=== PATIENT | female | born 1970 | race Caucasian/White ===

== ENCOUNTER 2016-04-13 05:39 | Observation (INO) | payer OTHER ==
--- NOTE | 2016-04-10 14:15 | GHP ---
[f rep st] PREOP HISTORY AND PHYSICAL DATE OF ADMISSION: 04/13/2016 DATE OF SURGERY: April 13, 2016, at 7:15 a.m. SURGERY TO BE PERFORMED: Total laparoscopic hysterectomy, bilateral salpingectomy. SURGEON: Nicol Gonzalez MD PLASTIC SHEETS FINISHING SUPERVISOR: Vandana Martínez MD PREOPERATIVE DIAGNOSES: Symptomatic uterine fibroids and menometrorrhagia. HISTORY OF PRESENT ILLNESS: The patient is a 46-year-old 0 who first presented for a problem visit due to her menometrorrhagia in January of 2016. She describes chronic heavy periods for greater than 15 years. They have been increasing over the last year, causing severe anemia, needing iron multiple times a day. She says her periods are every 30-35 days for 7 days. For several days, she has to change a super tampon and a pad every hour, and she has large clots. She also has moderate to severe cramping, and her periods are getting in the way of her life. She is not in a current relationship. She has no current contraception and has not for years. She was evaluated with a pelvic ultrasound. The ultrasound revealed multiple uterine fibroids, a large submucosal fibroid which was 2.03 x 1.74 x 2.2 cm and then a large posterior fundal subserosal fibroid that was 7.2 x 6 x 7.7 cm. Ovaries were normal. We discussed the role of both fibroids in her symptoms. After knowledge of her fibroids, she does report pelvic bulk symptoms, causing significant back pain, especially during her periods, and also pressure on her bowel and her bladder, as well as the submucosal fibroid likely contributing to her menometrorrhagia symptoms. We discussed medical management with oral contraceptive pills; however, the patient has hypertension, requiring 2 different meds to control her blood pressure. She is reluctant to start oral contraceptive pills, as am I. We discussed an intrauterine device; however, the submucosal fibroid would likely prevent accurate placement of an IUD and may have little utility because of that submucosal fibroid versus uterine artery embolization versus surgery. The patient desires surgical management with a total laparoscopic hysterectomy. GYNECOLOGICAL HISTORY: As above. She had menses at age 14. She has cycles every 30-35 days, about 5-7 days of flow, with heavy and moderate cramps. No history of any abnormal Paps. Last Pap smear was performed by de in January of 2016. It was normal. No history of any STDs. Not on any current contraception. She is 0. She has never been before. PAST MEDICAL HISTORY: Hypertension for approximately 2 years. She takes both lisinopril and hydrochlorothiazide for this. Also anemia, likely caused by her menometrorrhagia, requiring iron. PAST SURGICAL HISTORY: Only significant for wisdom teeth extraction at age 39. SOCIAL HISTORY: She is single. She works as a travel physical therapist. She denies tobacco use. Social alcohol. No drug use. FAMILY HISTORY: Father has hypertension and heart disease. He has had a cardiac bypass. Maternal grandfather of a stroke. No other significant family history. OBJECTIVE: VITALS: Today, her blood pressure is 118/86. Weight is 207. GENERAL: She is a well-developed, obese white female in no acute distress. LUNGS: Clear to auscultation bilaterally. HEART: Regular rate and rhythm. No murmurs. ABDOMEN: Soft, nontender, nondistended. Normal bowel sounds. PELVIC: Nulliparous cervix. Normal external genitalia. Uterus is bulky with the subserosal fibroid palpated. The uterus is approximately 14-16 weeks size, moderately tender. ASSESSMENT AND PLAN: 46-year-old 0 with symptomatic uterine fibroids, both a large pedunculated subserosal as well as submucosal in nature, and menometrorrhagia. The patient desires definitive management with total laparoscopic hysterectomy. She was consented for the procedure today. She understands the risks and benefits, the risks including bleeding, infection, damage to organs, uterus, tubes, ovaries, bowel, bladder, nerves, blood vessels , ureters, risk of additional procedures, risk of needing an open procedure, and complications of anesthesia, including . She understood these risks and benefits and agreed to consent. /[id number]/MODL MTDD
[~2016-04-13 05:39] MED LIST: ceFAZolin 2 GM/DEXTROSE 100 ML IV ONE
[2016-04-13] MEDS ORDERED: CEFAZOLIN 2 GM/DEXTROSE/100 ML BAG IV ONE (06:23)
[2016-04-13] MEDS ORDERED: LIDOCAINE 1% 5 ML SDV ONE (06:23)
[2016-04-13] MEDS ORDERED: LIDOCAINE 1% 5 ML SDV ID PRN (06:26)
[2016-04-13] MEDS ORDERED: LR 1,000 ML IV ONE (06:26)
[2016-04-13] MEDS ORDERED: BUPIVACAINE 0.5% 30 ML SDV ONE (07:01)
[2016-04-13] MEDS ORDERED: HYDROmorphONE/DILAUDID 2 MG/ML SYR ONE (07:08)
[2016-04-13] MEDS ORDERED: LIDOCAINE 2% 5 ML SDV ONE (07:09)
[2016-04-13] MEDS ORDERED: ROCURONIUM 50 MG/5 ML VIAL ONE ×2 (07:09→08:41)
[2016-04-13] MEDS ORDERED: DEXAMETHASONE 4 MG/ML VIAL ONE ×3 (07:09)
[2016-04-13] MEDS ORDERED: PROPOFOL 200 MG/20 ML VIAL ONE (07:09)
[2016-04-13] MEDS ORDERED: MIDAZOLAM 2 MG/2 ML VIAL ONE (07:14)
[2016-04-13] MEDS ORDERED: SCOPOLAMINE HYDROBROMIDE 1.5 MG PATCH TD ONE (07:21)
[2016-04-13] MEDS ORDERED: PHENYLEPHRINE HCL 100 MCG/ML SYR ONE (09:28)
[2016-04-13] MEDS ORDERED: ONDANSETRON 4 MG/2 ML VIAL ONE ×2 (10:25)
[2016-04-13] MEDS ORDERED: SUGAMMADEX SODIUM 200 MG/2 ML VIAL IVP ONE (10:35)
[2016-04-13] MEDS ORDERED: ONDANSETRON 4 MG/2 ML VIAL IVP PRN (10:47)
[2016-04-13] MEDS ORDERED: HYDROCODONE/APAP 5/325 TAB PO PRN (10:47)
[2016-04-13] MEDS ORDERED: MAGNESIUM HYDROXIDE 30 ML UDCUP PO PRN (10:49)
[2016-04-13] MEDS ORDERED: LACTULOSE 20 GM/30 ML UDCUP PO PRN (10:49)
[2016-04-13] MEDS ORDERED: BISACODYL 10 MG SUPP PR PRN (10:49)
[2016-04-13] MEDS ORDERED: POLYETHYLENE GLYCOL 3350 17 GM PKT PO PRN (10:49)
[2016-04-13] MEDS ORDERED: NALOXONE HCL 0.4 MG/ML INJ IVP PRN ×2 (10:49→17:35)
--- NOTE | 2016-04-13 10:52 | POSTOPPROG ---
Post Op Note Date of Operation: 04/13/16 Surgeon: Nicol Gonzalez Bottling Attendant: Vandana Martínez Anesthesiologist: Fredy Tamayo Anesthesia: GET(General Endotracheal) Pre-op Diagnosis: symptomatic uterine fibroids and menomenorrhagia Post-op Diagnosis: same Procedure: TLH B salpingectomy Findings: uterus with large fibroids Inf/Abcess present in the surg proc area at time of surgery?: No Depth: Organ Space EBL: 50-100 Complications: none Specimen(s): uterus with cervix and B fallopain tubes
[2016-04-13] MEDS ORDERED: LR 1,000 ML IV SCH (11:00)
[2016-04-13] MEDS ORDERED: fentaNYL 100 MCG/2 ML INJ ONE (11:00)
[2016-04-13] MEDS ORDERED: KETOROLAC 30 MG/1 ML SDV ONE (11:01)
[2016-04-13] MEDS ORDERED: HYDROmorphONE/DILAUDID 1 MG/ML SYR ONE (11:24)
--- NOTE | 2016-04-13 12:25 | GOP ---
[f rep st] OPERATIVE REPORT DATE OF OPERATION: 04/13/2016 SURGEON: Nicol Gonzalez MD DAIRY PROCESSING SUPERVISOR: Dr. Vandana Martínez. ANESTHESIA: General. ANESTHESIOLOGIST: Dr. Fredy Tamayo. PREOPERATIVE DIAGNOSIS: 1. Symptomatic uterine fibroids. 2. Menometrorrhagia. POSTOPERATIVE DIAGNOSIS: 1. Symptomatic uterine fibroids. 2. Menometrorrhagia. PROCEDURE PERFORMED: Total laparoscopic hysterectomy, bilateral salpingectomy. FINDINGS: ESTIMATED BLOOD LOSS: For the procedure was 100 cc. INDICATIONS: Daniella is a 46-year-old, 0 who presented complaining of menometrorrhagia for many years. It has been increasing over the last year, causing her to have severe anemia requiring iron a couple of times a day prescribed by her primary care doctor. Her periods are every 30-35 days, lasting for 7 days, and for several of those days, she has to change a super tampon and a pad every hour with large clots. She also has moderate to severe cramping, and her periods are getting in the way of her life. She is not in a current relationship, does not plan to have children, and she desires definitive treatment. She was evaluated with an ultrasound. Ultrasound revealed a large submucosal fibroid which was 2.0 x 1.74 x 2.2 cm, and then a large posterior fundal subserosal fibroid that was 7.2 x 6 x 7.7 cm. Ovaries were normal and patient also was complaining of significant back pain due to her periods. She was given treatment options and decided to have definitive treatment with surgical management. She was consented for a TLH with bilateral salpingectomy. She understood the risks and benefits of this. The risks including bleeding, infection, damage to internal organs, uterus, tubes, ovaries , bowel, bladder, nerves, blood vessels, ureters, risk of needing additional procedures, risk of needing an open procedure. She understood these risks and benefits, and agreed to proceed. DESCRIPTION OF PROCEDURE: The patient was taken to the operating room, where she was placed under general anesthesia without difficulty. She was prepped and draped in the dorsal lithotomy position, and a Patel catheter was placed in her bladder. After a WHO time-out was performed, a weighted speculum and a Nichols retractor were used to visualize the cervix. The anterior lip of the cervix was grasped with a single-tooth tenaculum. The uterus sounded to 10 cm. The cervix was dilated with Mccray dilators to a #7. The LEO uterine manipulator was seated at the fundus, and the cup was advanced around the cervix. Attention was then turned to the abdominal portion of the procedure, and due to the uterine size, decision was made to make the camera port 4 cm superior to the umbilicus. After injection with Marcaine, a 5 mm skin incision was made in this location. A Veress needle was used. There was a normal drop in pressure. Pneumoperitoneum was created with carbon dioxide gas. An atraumatic trocar was placed under direct visualization until the abdomen was entered, and the port was placed through this area. The patient was placed in deep Trendelenburg and pneumoperitoneum was established. After injection of Marcaine, a 5 mm skin incision was made in the right lower quadrant, and a 5 mm atraumatic trocar was placed under direct visualization on the side, and a 1 cm incision and trocar were placed in the left lower quadrant. Visualization of the uterus revealed a large bulky uterus with prominent fibroids at the fundus, but a normal lower uterine segment, normal cervix and normal ovaries and tubes bilaterally. The uterus was reflected to the patient's right, and the ovary and tube were elevated, and the ureter was seen to be in a normal location, peristalsing normally. The utero-ovarian ligament and the fallopian tube were grasped with the LigaSure, and cauterized and transected directly. Dissection was carried out along the cardinal ligaments until the anterior and posterior leaf of the broad ligaments were entered. The anterior leaf of the broad ligament was developed, and the bladder flap was developed with the LigaSure with blunt _as well as sharp dissection until the bladder was reflected inferiorly and the cup around the cervix was directly seen. The uterine vessels were then cauterized and cut with the LigaSure until the uterus was loosened on that left side. Identical procedure was performed on the right with identification of the normal peristalsing ureter, cautery and cut with the LigaSure along the utero-ovarian ligament, cardinal ligaments, fallopian tube, and development of the broad ligament, anterior and posterior leaves, and the bladder flap was developed on that side as well. Uterine arteries were identified and cauterized and cut along the cup around the cervix from the LEO. After clear visualization documented that the uterus was devascularized bilaterally and the LEO cup was visualized around the cervix circumferentially. The Harmonic scalpel was used to make the colpotomy, and this was developed circumferentially around the entire cervix. The uterus was then delivered vaginally with retraction along the large uterine fibroids. It was delivered without trauma to the vagina. A manipulator was placed through the vaginal cuff. The left fallopian tube was then grasped at the fimbriated end and removed directly with the LigaSure along the mesosalpinx, and taken out through the large port as was the right fallopian tube. Visualization of the pelvis revealed good hemostasis along all the pedicles and normal bilateral ureteral peristalsis. The V-Loc suture was then introduced into the abdomen, and the right vaginal cuff was grasped using care to identify and develop the uterosacral ligament, and the cuff was closed directly with V-Loc suture, incorporating both uterosacral ligaments, no areas of the bladder, and this was carried from right to left with redundant sutures, 1/[address] The cuff was hemostatic. The pelvis was copiously irrigated with warm normal saline , and documentation of hemostasis was made throughout the entire abdomen. Visualization of the liver and gallbladder were normal. We were not able to visualize the appendix, but there were no abnormalities in the bowel. The fascial closure device was used on the right lower quadrant larger port, so under direct visualization, the fascia was closed. Pneumoperitoneum was then allowed to escape, and the skin ports were closed with 4-0 Monocryl, all 3 sites. The patient tolerated the procedure well. Sponge, lap, needle, and instrument counts were correct x2. The patient went to the recovery room in good condition. URINE OUTPUT: 300 cc. IV FLUIDS: 1400 cc. /[id number]/MODL MTDD
[2016-04-13] MEDS: KETOROLAC 30 MG/1 ML SDV IVP PRN (15:57)
[2016-04-13] MEDS ORDERED: HYDROmorphONE/DILAUDID 6 MG/30 ML PCA IV PRN (17:35)
--- NOTE | 2016-04-13 17:40 | SOAPPROG ---
SOAP Progress Note Assessment/Plan: Assessment: 46 y/o POD 0 s/p TLH B salpingectomy doing well. Plan: Pt may need [facility] [employer] if unable to tolerate reg diet and po pain meds. D/c zambrano in am. Routine POC. 04/13/16 17:39 Subjective: Pt is doing well this evening. She has good pain control on Torodol. No n/v, laurie clear liquids and decreased appetite. No bleeding. Objective: Vital Signs Temp Pulse Resp BP Pulse Ox 37.2 C 64 8 L 135/89 H 99 04/13/16 16:10 04/13/16 16:10 04/13/16 16:10 04/13/16 16:10 04/13/16 16:10 04/12/16 04/13/16 04/14/16 05:59 05:59 05:59 Output Total 750 Balance -750 Physical Exam - Physical Exam General Appearance: WD/WN, alert, no apparent distress Neck: non-tender, full range of motion, supple Respiratory: chest non-tender, lungs clear, normal breath sounds Cardiac/Chest: regular rate, rhythm Abdomen: normal bowel sounds, other (incisions c/d/i) ICD10 Worksheet Patient Problems: Problems Problem Status Diagnosed S/P laparoscopic hysterectomy Acute - ICD10 Problem Qualifiers (1) S/P laparoscopic hysterectomy
[2016-04-13] MEDS ORDERED: PROMETHAZINE HCL 25 MG/ML VIAL IV ONE (20:30)
[2016-04-13] MEDS: SENNOSIDES/DOCUSATE SODIUM TAB PO SCH (21:55)
[2016-04-14] MEDS: KETOROLAC 30 MG/1 ML SDV IVP PRN (06:01)
[2016-04-14 06:59] LABS: HEMATOCRIT 38.7 % (38.0-47.0); HEMOGLOBIN 13.9 g/dL (12.6-16.3)
[2016-04-14] MEDS: SENNOSIDES/DOCUSATE SODIUM TAB PO SCH (08:52)
[2016-04-14 10:57] VITALS: BP 137/90; PULSE 100; RESP 12; TEMP 98.2; O2SAT 95
[2016-04-14] MEDS: IBUPROFEN 600 MG TAB PO SCH ×2 (12:15→13:01)
--- NOTE | 2016-04-14 12:51 | SOAPPROG ---
SOAP Progress Note Assessment/Plan: Assessment: 46 y/o POD 1 s/p TLH B salpingectomy doing well. Plan: D/c home today with Magnolia and Ibuprofen. Follow-up @ 2 and 6 weeks. Call [facility] for fever, heavy vaginal bleeding, or other concerns. 04/13/16 17:39 04/14/16 12:52 Subjective: Pt is doing well today. She is tolerating reg diet, and po pain meds. She is ambulating and voiding without difficulty and has min vaginal bleeding. She is ready to d/c home. Objective: Vital Signs Temp Pulse Resp BP Pulse Ox 36.8 C 100 12 137/90 H 95 04/14/16 10:00 04/14/16 10:00 04/14/16 10:00 04/14/16 10:00 04/14/16 10:00 Laboratory Results 04/14/16 06:20 04/13/16 04/14/16 04/15/16 05:59 05:59 05:59 Output Total 1640 1500 Balance -1640 -1500 - Pending Discharge Pending Discharge Within 24 Hours: Yes Pending Discharge Date: 04/15/16 Pending Discharge Time: 11:00 Physical Exam - Physical Exam General Appearance: WD/WN, alert, no apparent distress EENT: PERRL/EOMI Neck: non-tender, full range of motion, supple Respiratory: chest non-tender, lungs clear, normal breath sounds Cardiac/Chest: regular rate, rhythm Abdomen: normal bowel sounds, non-tender, soft, other (incisions c/d/i) Extremities: non-tender, swelling, Yisel's sign ICD10 Worksheet Patient Problems: Problems Problem Status Diagnosed S/P laparoscopic hysterectomy Acute - ICD10 Problem Qualifiers (1) S/P laparoscopic hysterectomy
== END 2016-04-14 13:35 | disposition home or self-care (01) ==
LOC: F3E 05:39 → FOB 13:22
PROVIDERS: ADMIT Obstetrics & Gynecology; ATTEND Obstetrics & Gynecology
PROC: 0UT7FZZ Resection of Bilateral Fallopian Tubes, Via Natural or Artificial Opening With Percutaneous Endoscopic Assistance (ICD-10-PCS; principal; 2016-04-13 07:15)
PROC: 0UTC7ZZ Resection of Cervix, Via Natural or Artificial Opening (ICD-10-PCS; principal; 2016-04-13 07:15)
PROC: 0UT9FZZ Resection of Uterus, Via Natural or Artificial Opening With Percutaneous Endoscopic Assistance (ICD-10-PCS; principal; 2016-04-13 07:15)
DX: D25.2 Subserosal leiomyoma of uterus (principal); D25.0 Submucous leiomyoma of uterus; N92.1 Excessive and frequent menstruation with irregular cycle; I10 Essential (primary) hypertension
CPT/HCPCS: 58571; G0378; J0690; J1100; J1170; J1885; J2250; J2370; J2405; J2550; J2704; J3010

== ENCOUNTER → 2016-08-11 | Outpatient (CLI) | payer OTHER | LOC: CIMAGING 08:03 | PROVIDERS: ATTEND Family Medicine | DX: Z12.39 Encounter for other screening for malignant neoplasm of breast (principal); R92.8 Other abnormal and inconclusive findings on diagnostic imaging of breast; I10 Essential (primary) hypertension | CPT/HCPCS: G0202 ==

== ENCOUNTER → 2016-08-15 | Outpatient (CLI) | payer OTHER | LOC: FIMAGING 14:49 | PROVIDERS: ATTEND Family Medicine | DX: R92.8 Other abnormal and inconclusive findings on diagnostic imaging of breast (principal) | CPT/HCPCS: G0206 ==

== ENCOUNTER → 2017-09-17 | Outpatient (CLI) | payer OTHER | LOC: CIMAGING 10:14 | PROVIDERS: ATTEND Family Medicine | DX: Z12.31 Encounter for screening mammogram for malignant neoplasm of breast (principal) ==